=== PATIENT | female | born 1955 | race Asian ===

== ENCOUNTER 2017-04-14 05:51 | Day surgery (SDC) | payer OTHER ==
[2017-04-14] MEDS ORDERED: SOD CHLORIDE 0.9% 1,000 ML IV (06:00)
[2017-04-14] MEDS ORDERED: CEFAZOLIN 2 GM/50 ML (PMX) 50 ML IVPB (06:00)
[2017-04-14] MEDS ORDERED: FENTAnyl 50 MCG/ML VIAL (08:25)
[2017-04-14] MEDS ORDERED: MIDAZOLAM 1 MG/ML 2 ML INJ (08:26)
[2017-04-14] MEDS: BUPIVACAINE 0.25% (MPF) 30 ML INJ (08:54)
[2017-04-14] MEDS ORDERED: CEFAZOLIN 1 GM INJ (09:01)
[2017-04-14] MEDS ORDERED: ONDANSETRON 4 MG INJ (09:01)
[2017-04-14] MEDS ORDERED: PROPOFOL 20 ML (09:01)
[2017-04-14] MEDS ORDERED: LIDOCAINE 2% (SDV) 5 ML INJ (09:01)
[2017-04-14] MEDS ORDERED: LABETALOL HCL 20MG INJ IV (09:30)
[2017-04-14] MEDS ORDERED: ONDANSETRON 4 MG INJ IV (09:30)
[2017-04-14] MEDS ORDERED: MEPERIDINE 25 MG INJ IV (09:30)
[2017-04-14] MEDS ORDERED: HYDROmorphONE (0.2 MG/ML) 10ML SYG IV ×2 (09:30)
[2017-04-14] MEDS ORDERED: FENTAnyl 50 MCG/ML VIAL IV (09:30)
[2017-04-14] MEDS ORDERED: hydrALAzine 20 MG INJ IV (09:30)
[2017-04-14] MEDS ORDERED: DIPHENHYDRAMINE 50 MG INJ IV (09:30)
[2017-04-14] MEDS: HYDROCODONE/APAP (5/325) TAB PO (10:40)
== END 2017-04-14 10:45 | disposition home or self-care (01) ==
LOC: SDS 05:51
DX: D17.1 Benign lipomatous neoplasm of skin and subcutaneous tissue of trunk (principal); I10 Essential (primary) hypertension; E78.5 Hyperlipidemia, unspecified
CPT/HCPCS: 14001; 88307